=== PATIENT | male | born 1980 | race Caucasian/White ===

== ENCOUNTER 2023-03-26 11:06 | Inpatient (IN) | payer SELFPAY ==
[2023-03-26] VITALS (14 sets, daily range): BP systolic 93–153; BP diastolic 53–88; PULSE 40–68; RESP 12–21; TEMP 36.2–36.9; O2SAT 97–100; BMI 22.7
--- NOTE | ~2023-03-26 | CT_ITS ---
EXAMINATION: CT brain wo con INDICATION: Headache COMPARISON: None TECHNIQUE: Standard unenhanced head CT. The dose-length product (DLP) was 681.00 mGy-cm. The mA was a djusted according to patient size. Iterative reconstruction technique was employed. FINDINGS: No intracranial hemorrhage, acute infarction, or abnormal mass lesion. The ventricles are n ormal. No abnormal mass effect or midline shift. The baker-white matter differentiation is normal. The basal cisterns are patent. The orbits are normal. The paranasal sinuses, mastoids and calvarium are normal. IMPRESSION: 1. No acute intracranial abnormality. Reviewed, dictated and finalized at location B. ER INSPECTOR
--- NOTE | ~2023-03-26 | XR_ITS ---
EXAMINATION: XR chest 2V DATE: 03/26/2023 12:04 INDICATION: Shortness of breath TECHNIQUE: PA and lateral views of the chest are obtained. COMPARISON: None available FINDINGS: The lungs are free of acute opacities. No pleural effusion or pneumothorax. The cardiomedia stinal silhouette is normal. The visualized bones and soft tissues are unremarkable. IMPRESSION: 1. No acute cardiopulmonary abnormality. Reviewed, dictated and finalized at location B. RIVETING MACHINE OPERATOR HELPER
--- NOTE | ~2023-03-26 | NM_ITS ---
EXAMINATION: NM stress w perf spect multi DATE: 03/28/2023 14:34 INDICATION: Chest pain. TECHNIQUE: Rest images were obtained following intravenous administration of 9.6 mCi Tc99m tetrofosmi n ([employer]). The patient performed an exercise activity. At peak exercise, 30.2 mCi Tc99m tetrofosmin ([employer]) was administered intravenously, and stress images were obtained. Data was reconstructed in to short axis and horizontal and vertical long axis SPECT images. Gated SPECT images were also obtain ed. COMPARISON: None. FINDINGS: There is no definite reversible or fixed perfusion abnormality to suggest ischemia or infar ction. There is no segmental wall motion abnormality. Left ventricular ejection fraction measures 5 0%. IMPRESSION: 1. No definite ischemia or infarct. 2. Normal left ventricular ejection fraction measuring 50%. Reviewed, dictated and finalized at location E. WASHER
--- NOTE | 2023-03-26 11:07 | ECG_ITS ---
Measurements Intervals [place] Rate: 52 P: 64 CO: 134 QRS: 52 QRSD: 92 T: 54 QT: 397 QTc: 371 Interpretive Statements SINUS BRADYCARDIA MINIMAL VOLTAGE CRITERIA FOR LVH, CONSIDER NORMAL VARIANT [MEETS CRITERIA IN ONE OF: R(aVL), S(V1), R(V5), R(V5/V6)+S(V1)] BORDERLINE ECG NO PREVIOUS ECG AVAILABLE FOR COMPARISON Electronically Signed On 03-26-2023 17:15:01 ASSEMBLER GARMENT FORM by Grady Woods M.D.
[2023-03-26 11:21] LABS: Basophils Percent Auto 0.4 % (0.2-1.2); Eosinophils Absolute Auto 0.1 K/mm3 (0-0.3); Eosinophils Percent Auto 2.3 % (0-4.4); Hematocrit 46.4 % (42.0-52.0); Hemoglobin 15.7 g/dL (14.0-18.0); Immature Granulocyte Absolute 0.01 K/mm3 (0.00-0.031); Immature Granulocyte Percent A 0.2 % (0-0.5); Lymphocytes Absolute Auto 2.32 K/mm3 (0.9-3.2); Lymphocytes Percent Auto 40.8 % (18.3-44.2); Mean Corpuscular HGB Conc 33.8 g/dl (32-36); Mean Corpuscular Hemoglobin 28.8 pg (26-34); Mean Corpuscular Volume 85.1 fl (80-100); Mean Platelet Volume 10.3 fl (7.4-10.4); Monocytes Absolute Auto 0.4 K/mm3 (0.1-0.6); Monocytes Percent Auto 7.2 % (2.6-8.5); Neutrophils Absolute Auto 2.8 K/mm3 (1.3-6.7); Neutrophils Percent Auto 49.1 % (45.5-73.1); Platelet Count Result 220 k/mm3 (150-375); Red Blood Count 5.45 M/mm3 (4.6-6.20); Red Cell Distribution Width 12.7 % (11.5-14.5); White Blood Count 5.7 K/mm3 (4.5-10.0)
[2023-03-26 11:31] LABS: Alanine Aminotransferase 20 U/L (6-50); Albumin Level 4.2 g/dL (3.5-5.1); Alkaline Phosphatase 69 U/L (38-126); Anion Gap 7 mmol/L (8-16); Aspartate Amino Transferase 27 U/L (17-59); Bilirubin,Total 0.6 mg/dL (0.2-1.3); Blood Urea Nitrogen 29 mg/dL (9-20); Calcium 8.7 mg/dL (8.4-10.2); Carbon Dioxide 22 mmol/L (22-30); Chloride 109 mmol/L (98-107); Estimated CRCL calculation 135 ml/min; Estimated Glomerular Filt Rate > 60; Glucose 128 mg/dL (65-110); Lipase 163 U/L (23-300); Potassium 3.6 mmol/L (3.4-5.0); Sodium 138 mmol/L (137-145)
[2023-03-26 11:34] LABS: Partial Thromboplastin Time 29.2 SECONDS (22.3-36.8)
[2023-03-26 11:43] LABS: Troponin I < 0.012 ng/mL (0.000-0.034)
[2023-03-26] MEDS: Please add drug allergy info to patient profile. 1 EACH XX (13:14)
[2023-03-26] MEDS: ASPIRIN 81 MG CHEWABLE TABLET 324 MG PO (13:14)
[2023-03-26] MEDS: NITROGLYCERIN SL 0.4 MG TABLET SUBLINGUAL (13:16)
--- NOTE | 2023-03-26 13:21 | PC.NURSE ---
13:21 pt received second dose of 0.4mg sublingual Nitroglycerin after reporting no improvement with chest pain 5 minutes after first dose
--- NOTE | 2023-03-26 13:26 | PC.NURSE ---
13:26 Pt given third dose of 0.4mg sublingual nitroglycerin after reporting no improvement of chest pain after first and second dose
--- NOTE | 2023-03-26 13:53 | ED.CHESTPAIN ---
HPI - Chest Pain General Chief Complaint: Chest Pain Stated Complaint: Chest Pain Time Seen by Provider: 03/26/23 12:58 History of Present Illness HPI narrative: Patient presents to the emergency department from home with his . He has had left-sided pain that radiated to his left arm for the past 2 days. Pain has been constant since yesterday morning. Nothing alleviates or worsens the pain. He has felt generally weak and has had headaches. He has a significant family history of early CAD. His uncle had a heart attack before 40 years old. He does not know his father. He also has a family history of bradycardia. His heart rate ranges from high 30s to mid 50s during my evaluation. He is very pleasant and does not have a primary care physician. Was once evaluated 2 years ago. Related Data Allergies Allergy/AdvReac Type Severity Reaction Status Date / Time No Known Allergies Allergy Verified 03/26/23 13:12 Review of Systems Review of Systems: Review of systems negative except what is documented in the HPI Exam Narrative: GENERAL: Well-appearing, well-nourished, and in no acute distress. HEAD: Normocephalic, atraumatic. EYES: PERRLA and EOMI. ENT: Nares clear, no rhinorrhea or epistaxis. Mucous membranes moist. NECK: Supple. CHEST: Clear to auscultation. No respiratory distress. HEART: Bradycardia ABDOMEN: Soft, nontender, nondistended. EXTREMITIES: Normal range of motion. No edema. SKIN: Warm, dry, no rash. NEURO: No focal deficits. Alert and oriented x3. PSYCH: Normal mood and affect. Course Course Emergency Course: differential diagnosis includes but not limited to cad, musculoskeletal pain initial troponin normal. EKG shows sinus bradycardia rate 52. No acute ischemia. Patient is 42 years old overall healthy. Will calculate a heart score discussed with greenhouse manager heart score 3 Vital Signs Vital signs: Vital Signs Temperature 36.4 C 03/26/23 11:08 Pulse Rate 56 L 03/26/23 11:08 Respiratory Rate 18 03/26/23 11:08 Blood Pressure 153/88 H 03/26/23 11:08 Pulse Oximetry 100 03/26/23 11:08 Oxygen Delivery Room Air 03/26/23 11:08 Temperature 36.4 C 03/26/23 11:08 Pulse Rate 49 L 03/26/23 15:50 Respiratory Rate 14 03/26/23 15:50 Blood Pressure 105/72 03/26/23 15:50 Pulse Oximetry 99 03/26/23 15:50 Oxygen Delivery Room Air 03/26/23 13:30 MDM - Chest Pain MDM Narrative Medical decision making narrative: Due to high probability of clinically significant lift threatening deterioration, the patient required my highest level of preparedness to intervene emergently. Critical care time documented not including procedures needed Telemetry ordered due to bradycardia to evaluate for dysrhythmias. Evaluated by myself. Rhythm bradycardia Rate 40 Consult cardiology. Atropine given with some improvement of heart rate from 30s to high 40s. Patient admitted to hospitalist for further monitoring of symptomatic bradycardia and left-sided chest pain. Patient states the nitro and morphine both made his pain worse Lab Data 03/26/23 11:16 03/26/23 11:16 Labs: Lab Results 03/26/23 03/26/23 Range/Units 11:16 14:10 WBC 5.7 (4.5-10.0) K/mm3 RBC 5.45 (4.6-6.20) M/mm3 Hgb 15.7 (14.0-18.0) g/dL Hct 46.4 (42.0-52.0) % MCV 85.1 (80-100) fl MCH 28.8 (26-34) pg MCHC 33.8 (32-36) g/dl RDW 12.7 (11.5-14.5) % Plt Count 220 (150-375) k/mm3 MPV 10.3 (7.4-10.4) fl Immature Gran % (Auto) 0.2 (0-0.5) % Neut % (Auto) 49.1 (45.5-73.1) % Lymph % (Auto) 40.8 (18.3-44.2) % [place] % (Auto) 7.2 (2.6-8.5) % Eos % (Auto) 2.3 (0-4.4) % Baso % (Auto) 0.4 (0.2-1.2) % Lymph # (Auto) 2.32 (0.9-3.2) K/mm3 [place] # (Auto) 0.4 (0.1-0.6) K/mm3 Eos # (Auto) 0.1 (0-0.3) K/mm3 Baso # (Auto) 0.0 (0.0-0.1) K/mm3 Abs Immat Gran (auto) 0.01 (0.00-0.031) K/mm3 Absolute
--- NOTE | 2023-03-26 14:10 | ECG_ITS ---
Measurements Intervals [place] Rate: 39 P: 63 [place]: 149 QRS: 56 QRSD: 87 T: 59 QT: 449 QTc: 363 Interpretive Statements SINUS BRADYCARDIA WITH OCCASIONAL VENTRICULAR PREMATURE COMPLEXES BORDERLINE ECG COMPARED TO ECG 03/26/2023 11:12:04 HEART RATE HAS DECREASED Electronically Signed On 03-26-2023 17:25:36 RN CLINICAL by Grady Woods M.D.
[2023-03-26] MEDS: MORPHINE SULFATE (*CRX) 2 MG/ML INJ IV PUSH (14:11)
[2023-03-26 15:00] LABS: Troponin I < 0.012 ng/mL (0.000-0.034)
[2023-03-26] MEDS: ATROPINE SULFATE 1 MG/10 ML SYRINGE IV PUSH (15:21)
[2023-03-26 16:49] LABS: Influenza A QL RT-PCR Negative (Negative); Influenza B QL RT-PCR Negative (Negative); RSV RNA, RT-PCR Negative (Negative); SARS-CoV-2 RNA PCR Negative (Negative)
--- NOTE | 2023-03-26 17:12 | ECG_ITS ---
Measurements Intervals [place] Rate: 47 P: 62 [place]: 149 QRS: 46 QRSD: 98 T: 49 QT: 431 QTc: 384 Interpretive Statements SINUS BRADYCARDIA MINIMAL VOLTAGE CRITERIA FOR LVH, CONSIDER NORMAL VARIANT BORDERLINE ECG COMPARED TO ECG 03/26/2023 14:24:37 NO SIGNIFICANT CHANGES Electronically Signed On 03-26-2023 17:31:00 ANTISQUEAK WORKER by Grady Woods M.D.
--- NOTE | 2023-03-26 17:22 | ADMGEN ---
This patient, Damaso Rossi, was admitted to IMU Room 210-01. Patient/family oriented to hospital policies and general routines including ID bracelet, bed and alarms, visiting hours, pain management, procedures, bathroom and other care routines, personal items, smoking policy, room service/diet, and visiting hours. Information on how to activate the Rapid Response Team has been discussed. Patient/Family are encouraged to report perceived risks to care and to ask questions if they do not understand what they are told or what they should do.
[2023-03-26 17:40] LABS: Troponin I < 0.012 ng/mL (0.000-0.034)
--- NOTE | 2023-03-26 17:56 | PM.IMHP ---
H&P: HPI History of Present Illness Date/Time: 03/26/23 22:00 Chief Complaint: Chest pressure. Narrative: This is a 42-year-old male smoker who presented to the emergency department via private vehicle for evaluation of chest pressure. The patient provides the following history. The patient provides the following history. The last 2 days he has been experiencing left-sided chest tightness or heaviness radiating to the arm. It has been nearly constant and he denies aggravating and alleviating factors. Today while at work he started to feel weak and developed a headache. He reports a family history of early-onset coronary artery disease and reports having an uncle who had a heart attack before the age of 4040 years old. He has been persistently bradycardic since arrival to the ED and he reports having a family history of the same. He does not know his baseline heart rate. Troponins have been negative thus far. EKG showed sinus bradycardia without significant changes. Chest x-ray showed no acute findings and a normal cardiomediastinal silhouette. He is being admitted in this setting for close monitoring in IMU and Cardiology consultation. Review of Systems Review of Systems: Twelve systems were reviewed and are negative except for as per HPI. [facility] Past Medical History Medical History (Updated 03/27/23 @ 00:39 by Alma Blackmon PA-C) Attention deficit disorder Tobacco abuse Surgical History Surgical History (Updated 03/27/23 @ 00:36 by Alma Blackmon PA-C) No history of previous surgery Family History Family History Mother Lung cancer Grandparent Hypertension Heart disease Grandparent Cerebrovascular accident Grandparent Cardiac arrest Other Cardiac arrest Social History Social History (Updated 03/27/23 @ 00:36 by Alma Blackmon PA-C) Social History: Surrogate medical decision maker: Kwasi Black, spouse. Code status: Full code. Smoking packs per day: 1 Smoking cigarettes per day: 20.0 Years smoked: 20 Smoking pack-years: 20.00 Smoking status: Current every day smoker Tobacco type: cigarettes Alcohol intake: never Substance use: former Substance use type: marijuana and methamphetamine Last use: methamphetamine-3 years ago Do You Feel Safe in your Home?: Yes Lack of Transportation: No Lack of Food: Never True Current Housing: I Have Housing Concerned About Future Housing: No Difficulty Paying Gas/Electric Bills: No Difficulty Paying for Meds: No Currently Unemployed: No Education: High School Diploma/GED Difficulty w/ Childcare or Family Care: No Spiritual care concerns: No Meds Home Medications and Allergies Home Medications Medication Instructions Recorded Confirmed Type No Home Medications 03/26/23 03/26/23 History Allergies Allergy/AdvReac Type Severity Reaction Status Date / Time No Known Allergies Allergy Verified 03/26/23 13:12 Vital Signs Vital Signs - 24 hr 03/26/23 11:08 03/26/23 13:14 03/26/23 13:30 Temperature 97.6 F Pulse Rate 56 L 55 L Respiratory Rate 18 16 Blood Pressure 153/88 H 112/75 Pulse Oximetry 100 98 98 Oxygen Delivery Room Air Room Air 03/26/23 14:04 03/26/23 15:24 03/26/23 15:50 Temperature Pulse Rate 54 L 48 L 49 L Respiratory Rate 15 16 14 Blood Pressure 101/72 112/81 105/72 Pulse Oximetry 97 99 99 Oxygen Delivery 03/26/23 16:26 03/26/23 16:58 03/26/23 17:22 Temperature 97.3 F L Pulse Rate 45 L 55 L 48 L Respiratory Rate 12 21 H 20 Blood Pressure 106/77 119/60 129/78 Pulse Oximetry 100 100 99 Oxygen Delivery Exam Narrative: General: Well-developed male supine in bed. Weight: 87 kg. BMI: 22.7. HEENT: PERRL, EOMI. Sclera anicteric. Tacky mucous membranes. Neck: Supple. Respiratory: Lungs are clear to auscultation bilaterally. Cardiovascular: Bradycardic. Chest: Mild tenderness to
[2023-03-27] VITALS (16 sets, daily range): BP systolic 97–118; BP diastolic 55–77; PULSE 36–48; RESP 14–18; TEMP 36.4–36.9; O2SAT 96–100
--- NOTE | 2023-03-27 00:39 | ECHO_ITS ---
Patient Info Name: Damaso Rossi Age: 42 years : 1980 Gender: Male Ht: 75 in Wt: 179 lbs BSA: 2.07 m2 HR: 36 bpm BP: 107 / 62 mmHg Heart Rhythm: Bradycardia Technical Quality: Good Exam Date: 03/27/2023 10:28 AM Exam Location: Echo Lab Patient Status: Inpatient Admit Date: 03/26/2023 Staff Ordering Physician: Alma Blackmon PA-C Middle School English Teacher: Marylou Norton RDCS Attending Provider: Mikey Roberts MD Referring Physician: Lorri MUNIZ; Exam Type: CA echo doppler color flow Study Info Indications - chest pain Complete two-dimensional, color flow and Doppler transthoracic echocardiogram is performed. Summary 1. Complete two-dimensional, color flow and Doppler transthoracic echocardiogram is performed. 2. Left ventricular chamber dimension is normal. 3. Left ventricular systolic function is normal, estimated at 60-65%. 4. The left ventricular diastolic function is grade I diastolic dysfunction. 5. Right ventricular chamber dimension is mildly enlarged. 6. Right ventricular systolic function is normal. 7. Right atrial chamber dimension is mildly enlarged. 8. There is mild mitral valve regurgitation. Left Ventricle Left ventricular chamber dimension is normal. Left ventricular systolic function is normal, estimated at 60-65%. There is no increased left ventricular wall thickness. The left ventricular diastolic function is grade I diastolic dysfunction. Right Ventricle Right ventricular chamber dimension is mildly enlarged. Right ventricular systolic function is normal. Left Atria Left atrial chamber dimension is normal. Right Atria Right atrial chamber dimension is mildly enlarged. Atrial Septum Intact interatrial septum visualized by color flow imaging. Aortic Valve The aortic valve is trileaflet. There is no aortic valve stenosis. There is no aortic valve regurgitation. Pulmonic Valve The pulmonic valve is not well visualized. There is trace pulmonic regurgitation. Mitral Valve There is mild mitral valve regurgitation. Tricuspid Valve There is trace tricuspid valve regurgitation. Pericardium/Pleural There is no pericardial effusion. Inferior Vena Cava Normal inferior vena cava with >50% collapse upon inspiration consistent with normal right atrial pressure, 3 mmHg. Aorta The aortic root size at the sinus of Valsalva is mildly dilated. Left Ventricular Outflow Tract Name Value Normal LVOT 2D LVOT Diameter 2.1 cm LVOT Doppler LVOT Peak Gradient 3 mmHg LVOT Mean Gradient 2 mmHg LVOT VTI 29 cm LVOT VTI/AV VTI Ratio 1.1 LVOT Stroke Volume 104 ml LVOT CO 3.5 l/min LVOT CI 1.7 l/min/m2 Pulmonic Valve Name Value Normal RVOT Doppler RVOT Peak Gradient 1 mmHg P
[2023-03-27 05:14] LABS: Anion Gap 4 mmol/L (8-16); Blood Urea Nitrogen 29 mg/dL (9-20); Calcium 8.6 mg/dL (8.4-10.2); Carbon Dioxide 26 mmol/L (22-30); Chloride 108 mmol/L (98-107); Cholesterol 151 mg/dL (0-200); Estimated CRCL calculation 106 ml/min; Estimated Glomerular Filt Rate > 60; Glucose 102 mg/dL (65-110); HDL Direct 33 mg/dL; Magnesium 1.9 mg/dL (1.6-2.3); Potassium 4.2 mmol/L (3.4-5.0); Sodium 138 mmol/L (137-145); Triglycerides 81 mg/dL (<150)
[2023-03-27] MEDS: SODIUM CHLORIDE 0.9% IV 1,000 ML 100 ML IV CONT (05:20)
[2023-03-27 05:25] LABS: LDL Cholesterol Direct 92 mg/dL
[2023-03-27] MEDS: ACETAMINOPHEN 325 MG TABLET 650 MG PO (05:28)
--- NOTE | 2023-03-27 08:45 | PM.IMPN ---
Progress Note: A&P Assessment and Plan (1) Chest pain: Qualifiers: Chest pain type: unspecified Qualified Code(s): R07.9 - Chest pain, unspecified Code(s): R07.9 - Chest pain, unspecified Status: Acute (2) Bradycardia: Code(s): R00.1 - Bradycardia, unspecified Status: Acute (3) Tobacco abuse: Code(s): Z72.0 - Tobacco use Status: Acute Plan This is a 42-year-old male smoker who presented to the emergency department via private vehicle for evaluation of chest pressure. The patient provides the following history. The patient provides the following history. The last 2 days he has been experiencing left-sided chest tightness or heaviness radiating to the arm. It has been nearly constant and he denies aggravating and alleviating factors.? Chest pain Possible atypical chest pain, negative troponin x2, EKG shows sinus rhythm bradycardia nonspecific ST-T changes Given family history of early-onset coronary artery disease, patient has high risk of coronary artery disease Chest pain is also possible related to bradycardia Follow-up echocardiogram TSH,, drug screening Follow serial troponin, EKG Telemetry monitoring Consult equip maint eng for evaluation treatment Plan cardiac stress test tomorrow Bradycardia Patient has sinus bradycardia On equip maint eng Follow-up TSH Telemetry monitoring Consult equip maint eng for evaluation treatment Dehydration BUN 29, creatinine 1.0 Received fluid resuscitation Blood pressure stable Subjective Date/time seen: 03/27/23 08:45 Interval history: I saw and examined patient at bedside, patient still has some chest pain, denies palpitation, shortness of breath, patient also has headache, denies vision change, focal weakness, unstable gait Exam Narrative: General: Well-developed male supine in bed. Weight: 87 kg. BMI: 22.7. HEENT: PERRL, EOMI. Sclera anicteric. Tacky mucous membranes. Neck: Supple. Respiratory: Lungs are clear to auscultation bilaterally. Cardiovascular: Bradycardic. Chest: Mild tenderness to palpation over the left anterior chest. Gastrointestinal: Abdomen is soft, nontender, and nondistended with positive bowel sounds. Skin: Warm and dry. No rash or lesions on limited exam. Extremities: No cyanosis, clubbing, or edema. Radial and pedal pulses intact. No palpable knots or cords. Neurological: Alert. Cranial nerves 2-12 are grossly intact. No gross focal deficits to casual conversation. Psychiatric: Pleasant and cooperative with normal mood and affect. Judgment and insight intact. Objective Data Vital Signs Vital Signs: Vital Signs - 24 hr 03/26/23 11:08 03/26/23 13:14 03/26/23 13:30 Temperature 97.6 F Pulse Rate 56 L 55 L Respiratory Rate 18 16 Blood Pressure 153/88 H 112/75 Pulse Oximetry 100 98 98 Oxygen Delivery Room Air Room Air Oxygen Flow Rate 03/26/23 14:04 03/26/23 15:24 03/26/23 15:50 Temperature Pulse Rate 54 L 48 L 49 L Respiratory Rate 15 16 14 Blood Pressure 101/72 112/81 105/72 Pulse Oximetry 97 99 99 Oxygen Delivery Oxygen Flow Rate 03/26/23 16:26 03/26/23 16:58 03/26/23 17:22 Temperature 97.3 F L Pulse Rate 45 L 55 L 48 L Respiratory Rate 12 21 H 20 Blood Pressure 106/77 119/60 129/78 Pulse Oximetry 100 100 99 Oxygen Delivery Oxygen Flow Rate 03/26/23 18:00 03/26/23 18:13 03/26/23 19:25 Temperature 98.5 F Pulse Rate 68 45 L Respiratory Rate 16 Blood Pressure 105/60 Pulse Oximetry 97 Oxygen Delivery Room Air Oxygen Flow Rate 03/26/23 20:00 03/26/23 23:44 03/26/23 20:00 Temperature 97.2 F L Pulse Rate 45 L 48 L 48 L Respiratory Rate 16 15 Blood Pressure 93/53 L Pulse Oximetry 97 98 Oxygen Delivery Room Air Oxygen Flow Rate 03/26/23 22:00 03/27/23 00:00 03/27/23 00:00 Temperature Pulse Rate 40 L 48 L 39 L Respiratory Rate 15 Blood Pressure Pulse Oximetry 98 Oxygen Delivery Room A
--- NOTE | 2023-03-27 10:08 | PM.CNCAR ---
Assessment and Plan Assessment and plan (1) Chest pain: Qualifiers: Chest pain type: unspecified Qualified Code(s): R07.9 - Chest pain, unspecified Code(s): R07.9 - Chest pain, unspecified Status: Acute Assessment and Plan: EKGs without ischemic changes. Troponins are negative x 3. He does have a musculoskeletal component, agree with Tylenol for pain control. Echocardiogram ordered and pending. Given his risk factors for heart disease, will plan for treadmill nuclear stress test to be done 03/28. NPO order placed. (2) Bradycardia: Code(s): R00.1 - Bradycardia, unspecified Status: Acute Assessment and Plan: Heart rate noted to be in the 30s to 60s. Is in sinus bradycardia without any significant bradyarrhythmias. TSH level is normal. This does not appear to be a symptomatic bradycardia. Echocardiogram pending to rule out underlying structural heart disease. Continue to monitor on telemetry. Will assess his chronotropic response to exercise on treadmill test. Recommend outpatient sleep study to evaluate for ENE. If echocardiogram is without significant abnormality and he has appropriate heart rate response to exercise, then no further cardiac workup needed. (3) Tobacco abuse: Code(s): Z72.0 - Tobacco use Status: Acute Assessment and Plan: Smoking cessation discussed. History of Present Illness History of Present Illness Consult date/time: 03/27/23 10:08 Requesting physician: Phylicia Kirkland MD Consult reason: Other (Chest pain, bradycardia) Reason For Visit: Bradycardia Narrative: We are consulted for chest pain and bradycardia. This is a 42 year old male with tobacco dependence and marijuana use who presented with chest pain. Chest pain has been occurring since Sunday morning, which started after eating breakfast. Has been constant since then. No association with exertion. Given NTG in the ED which made it worse. ER workup showed EKG with sinus bradycardia. Heart rate noted to be as low as the 30s. He was given Atropine by ED which had some improvement in the heart rate. Troponins are negative x 3. CXR without acute findings. Serial EKGs without ischemic changes. Patient smokes 1PPD for the past 20 years. Daily marijuana use as well. His maternal grandfather had history of coronary disease, pacemaker. His maternal uncle from complications from high blood pressure. 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 Review of Systems Review of Systems: All systems reviewed & are unremarkable except as noted in HPI and below (HPI) PMFSH Past Medical History Medical History Attention deficit disorder Tobacco abuse Surgical History Surgical History No history of previous surgery Family History Family History Mother Lung cancer Grandparent Hypertension Heart disease Grandparent Cerebrovascular accident Grandparent Cardiac arrest Other Cardiac arrest Social History Social History Social History: Surrogate medical decision maker: Kwasi Rossi, spouse. Code status: Full code. 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
[2023-03-27] MEDS: HYDROcodone/acetaminophen (*CRX) 5-325 MG TABLET 1 TAB PO ×2 (11:30→22:27)
[2023-03-27] MEDS: NICOTINE (*PBKC) 21 MG PATCH 1 PATCH TRANSDERM (17:00)
[2023-03-27 17:41] LABS: Amphetamine Screen Urine Negative (Negative); Barbiturate Screen Urine Negative (Negative); Benzodiazepines Screen Urine Negative (Negative); Cannabinoid Screen Urine Positive (Negative); Cocaine Screen Urine Negative (Negative); Methadone Screen Urine Negative (Negative); Opiate Screen Urine Positive (Negative); Phencyclidine Screen Urine Negative (Negative)
[2023-03-27 17:42] LABS: Appearance Urine Clear (Clear); Bilirubin Urine Negative (Negative); Blood Urine Negative (Negative); Color Urine Yellow (Yellow); Glucose Urine UA Negative (Negative); Ketones Urine Negative (Negative); Leukocyte Esterase Ur Negative LEU/UL (NEGATIVE); Nitrate Urine Negative (Negative); Protein Urine Negative (Negative); Specific Grav Ur 1.023 (1.001-1.035); Urobilinogen Urine 0.2 mg/dL (<2.0); pH Urine 6.5 (5.0-9.0)
[2023-03-27 17:52] LABS: Add Urine Microscopic? NO
[2023-03-28] VITALS (8 sets, daily range): BP systolic 96–104; BP diastolic 54–66; PULSE 40–61; RESP 14–20; TEMP 36.1–36.5; O2SAT 97–99
--- NOTE | 2023-03-28 | EST_ITS ---
Patient Info Name: Damaso Rossi Age: 42 years : 1980 Gender: Male Ht: 77 in Wt: 190 lbs BSA: 2.16 m2 HR: 44 bpm BP: 14 / 74 mmHg Heart Rhythm: Sinus Rhythm Exam Date: 03/28/2023 12:00 PM Exam Location: Echo Lab Patient Status: Inpatient Admit Date: 03/27/2023 Staff Ordering Physician: Vane Boyd MD Attending Provider: Mikey Roberts MD Exercise Technologist: Miladys Trotter CT Exercise Physician: Vane Boyd MD Exam Type: CA stress test treadmill w NM Study Info Indications R07.89 - Other chest pain A nuclear stress test was performed. Summary 1. Exercise capacity very good at >10 METS. 2. Target heart rate achieved for stress test. Appropriate heart rate response to exercise. 3. Hypertensive blood pressure response with exercise. 4. Occasional PVCs during exercise. 5. No abnormal ST/T wave changes diagnostic of ischemia with exercise. 6. Please correlate with nuclear medicine images, reported separately. 7. Stress test supervised and interpreted by Vane Boyd MD. Protocol: José Miguel Stress ECG Details Stage: REST Duration (min): 1 min : 8 sec Speed (mph): 0.0 Grade (%): 0 HR (bpm): 51 SBP (mmHg): 114 DBP (mmHg): 74 METS: --- Stage: REST Duration (min): 26 min : 22 sec Speed (mph): 0.0 Grade (%): 0 HR (bpm): 49 SBP (mmHg): 114 DBP (mmHg): 74 METS: --- Stage: STAGE 1 Duration (min): 1 min : 0 sec Speed (mph): 1.7 Grade (%): 10 HR (bpm): 75 SBP (mmHg): 114 DBP (mmHg): 74 METS: --- Stage: STAGE 1 Duration (min): 2 min : 0 sec Speed (mph): 1.7 Grade (%): 10 HR (bpm): 75 SBP (mmHg): 114 DBP (mmHg): 74 METS: --- Stage: STAGE 1 Duration (min): 3 min : 0 sec Speed (mph): 1.7 Grade (%): 10 HR (bpm): 76 SBP (mmHg): 135 DBP (mmHg): 78 METS: --- Stage: STAGE 2 Duration (min): 1 min : 0 sec Speed (mph): 2.5 Grade (%): 12 HR (bpm): 82 SBP (mmHg): 135 DBP (mmHg): 78 METS: --- Stage: STAGE 2 Duration (min): 2 min : 0 sec Speed (mph): 2.5 Grade (%): 12 HR (bpm): 82 SBP (mmHg): 147 DBP (mmHg): 74 METS: --- Stage: STAGE 2 Duration (min): 3 min : 0 sec Speed (mph): 2.5 Grade (%): 12 HR (bpm): 87 SBP (mmHg): 147 DBP (mmHg): 74 METS: --- Stage: STAGE 3 Duration (min): 1 min : 0 sec Speed (mph): 3.4 Grade (%): 14 HR (bpm): 99 SBP (mmHg): 147 DBP (mmHg): 74 METS: --- Stage: STAGE 3 Duration (min): 2 min : 0 sec Speed (mph): 3.4 Grade (%): 14 HR (bpm): 104 SBP (mmHg): 147 DBP (mmHg): 74 METS: --- Stage: STAGE 3 Duration (min): 3 min : 0 sec Speed (mph): 3.4 Grade (%): 14 HR (bpm): 107 SBP (mmHg): 204 DBP (mmHg): 91 METS: --- Stage: STAGE 4 Duration (min): 1 min : 0 sec Speed (mph): 4.2 Grade (%): 16 HR (bpm): 143 SBP (mmHg): 204 DBP (mmHg): 91 METS: --- Stage: STAGE 4 Duration (min): 2 min : 0 sec Speed (mph): 4.2
[2023-03-28] MEDS: NICOTINE (*PBKC) 21 MG PATCH 1 PATCH TRANSDERM (09:53)
[2023-03-28] MEDS: HYDROcodone/acetaminophen (*CRX) 5-325 MG TABLET 1 TAB PO (11:00)
--- NOTE | 2023-03-28 11:21 | PM.PNCARD ---
Progress Note: A&P Assessment and Plan (1) Chest pain: Qualifiers: Chest pain type: unspecified Qualified Code(s): R07.9 - Chest pain, unspecified Code(s): R07.9 - Chest pain, unspecified Status: Acute Assessment and Plan: EKGs without ischemic changes. Troponins are negative x 3. He does have a musculoskeletal component, agree with Tylenol for pain control. Echocardiogram shows normal LVEF, no significant valvular disease. Given his risk factors for heart disease, will plan for treadmill nuclear stress test to be done 03/28. (2) Bradycardia: Code(s): R00.1 - Bradycardia, unspecified Status: Acute Assessment and Plan: Heart rate noted to be in the 30s to 60s. Is in sinus bradycardia without any significant bradyarrhythmias. TSH level is normal. This does not appear to be a symptomatic bradycardia. Echocardiogram with normal LVEF, no significant abnormality. Continue to monitor on telemetry. Will assess his chronotropic response to exercise on treadmill test. Recommend outpatient sleep study to evaluate for ENE. If echocardiogram is without significant abnormality and he has appropriate heart rate response to exercise, then no further cardiac workup needed. (3) Tobacco abuse: Code(s): Z72.0 - Tobacco use Status: Acute Assessment and Plan: Smoking cessation discussed. Subjective Date/time seen: 03/28/23 11:21 Interval history: Reason for visit: Chest pain HPI: We are consulted for chest pain and bradycardia. This is a 42 year old male with tobacco dependence and marijuana use who presented with chest pain. Chest pain has been occurring since Sunday morning, which started after eating breakfast. Has been constant since then. No association with exertion. Given NTG in the ED which made it worse. ER workup showed EKG with sinus bradycardia. Heart rate noted to be as low as the 30s. He was given Atropine by ED which had some improvement in the heart rate. Troponins are negative x 3. CXR without acute findings. Serial EKGs without ischemic changes. Patient smokes 1PPD for the past 20 years. Daily marijuana use as well. His maternal grandfather had history of coronary disease, pacemaker. His maternal uncle from complications from high blood pressure. 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 Date of service 03/28: Reports a headache this morning. Tele stable with sinus bradycardia without any significant arrhythmias. Review of Systems Review of Systems: All systems reviewed & are unremarkable except as noted in HPI and below (HPI) Exam Const: General: no acute distress HENMT: Mouth: Yes moist mucous membranes Eyes: General: appearance normal, both eyes and all related structures Sclera: sclerae normal Resp: Effort & Inspection: normal respiratory effort Cardio: Rate: bradycardic Rhythm: regular rhythm Skin: General skin exam: normal color Neuro: Speech: normal speech Psych: Mental Status: mental status grossly normal Affect: normal affect Objective Data Vital Signs Vital Signs: Vital Signs - 24 hr 03/27/23 12:00 03/27/23 12:17 03/27/23 12:19 Temperature 36.9 C Pulse Rate 43 L Respiratory Rate 16 Blood Pressure 104/60 112/76 106/70 Pulse Oximetry 98 Oxygen Delivery 03/27/23 15:35 03/27/23 12:00 03/27/23 14:00 Temperature 36.6 C Pulse Rate 40 L 42 L 40 L Respiratory Rate 14 Blood Pressure 97/55 L Pulse Oximetry 96 Oxygen Delivery 03/27/23 16:00 03/27/23 18:00 03/27/23 20:51 Temperature 36.4 C Pulse Rate 40 L 45 L 45 L Respiratory Rate 16 Blood Pressure 118/77 Pulse Oximetry 99 Oxygen Delivery 03/27/23 20:00 03/27/23 20:00 03/27/23 20:00 Temperature 36.4 C Pulse Rate 45 L 45 L 45 L Respiratory Rate 16 16 Blood Pressure 118/77 Pulse Oximetry 99 99 Oxygen Delivery Room Air 03/27/23 22:00 03/28/23 00:00
--- NOTE | 2023-03-28 12:06 | PM.IMPN ---
Progress Note: A&P Assessment and Plan (1) Chest pain: Qualifiers: Chest pain type: unspecified Qualified Code(s): R07.9 - Chest pain, unspecified Code(s): R07.9 - Chest pain, unspecified Status: Acute (2) Bradycardia: Code(s): R00.1 - Bradycardia, unspecified Status: Acute (3) Tobacco abuse: Code(s): Z72.0 - Tobacco use Status: Acute Plan This is a 42-year-old male smoker who presented to the emergency department via private vehicle for evaluation of chest pressure. The patient provides the following history. The patient provides the following history. The last 2 days he has been experiencing left-sided chest tightness or heaviness radiating to the arm. It has been nearly constant and he denies aggravating and alleviating factors.? Chest pain Possible atypical chest pain, negative troponin x2, EKG shows sinus rhythm bradycardia nonspecific ST-T changes Given family history of early-onset coronary artery disease, patient has high risk of coronary artery disease Chest pain is also possible related to bradycardia Follow-up echocardiogram ? 1. Complete two-dimensional, color flow and Doppler transthoracic echocardiogram is performed. ? 2. Left ventricular chamber dimension is normal. ? 3. Left ventricular systolic function is normal, estimated at 60-65%. ? 4. The left ventricular diastolic function is grade I diastolic dysfunction. ? 5. Right ventricular chamber dimension is mildly enlarged. ? 6. Right ventricular systolic function is normal. ? 7. Right atrial chamber dimension is mildly enlarged. ? 8. There is mild mitral valve regurgitation TSH within normal limit, drug screening positive opiate and marijuana Follow serial troponin negative, EKG sinus Eliceo Telemetry monitoring shows no ischemia Consult soaping department supervisor for evaluation treatment No ischemia on cardiac stress test , and patient's heart rate increased responding to cardiac stress test Bradycardia Patient has sinus bradycardia Follow-up TSH 2.23 Telemetry monitoring shows sinus bradycardia, patient is asymptomatic Consult soaping department supervisor for evaluation treatment, cardiac stress test performed, that shows no cardiac ischemia per Cardiology report Carrier Loader approved patient to be discharged and patient will be followed by primary care doctor and soaping department supervisor Dehydration BUN 29, creatinine 1.0 Received fluid resuscitation Blood pressure stable Subjective Date/time seen: 03/28/23 12:06 Interval history: I saw exam patient today, patient denies palpitation, chest pain, short of breath, abdomen pain, nausea vomiting diarrhea dysuria. Patient underwent cardiac stress test without complication. Cardiac stress test negative of ischemia per soaping department supervisor, pending report. Patient heart rate responding to cardiac stress test Exam Narrative: General: Well-developed male supine in bed. Weight: 87 kg. BMI: 22.7. HEENT: PERRL, EOMI. Sclera anicteric. Tacky mucous membranes. Neck: Supple. Respiratory: Lungs are clear to auscultation bilaterally. Cardiovascular: Bradycardic. Chest: Mild tenderness to palpation over the left anterior chest. Gastrointestinal: Abdomen is soft, nontender, and nondistended with positive bowel sounds. Skin: Warm and dry. No rash or lesions on limited exam. Extremities: No cyanosis, clubbing, or edema. Radial and pedal pulses intact. No palpable knots or cords. Neurological: Alert. Cranial nerves 2-12 are grossly intact. No gross focal deficits to casual conversation. Psychiatric: Pleasant and cooperative with normal mood and affect. Judgment and insight intact. Objective Data Vital Signs Vital Signs: Vital Signs - 24 hr 03/27/23 12:17 03/27/23 12:19 03/27/23 15:35 Temperature 97.8 F Pulse Rate 40 L Respiratory Rate 14 Blood Pressure 112/76 106/70 97/55 L Pulse Oximetry 96 Oxygen Delivery 03/27/23 14:00 03/27/23 16:00 03/27/23 18:00 Temperature Pulse
--- NOTE | 2023-03-28 15:48 | PM.DS ---
DS: Admitting Diagnosis Discharge Date 03/28/23 Admitting Diagnosis (1) Chest pain: ?Qualifiers: ?Chest pain type:?unspecified? Qualified Code(s):?R07.9 - Chest pain, unspecified ?Code(s): R07.9 - Chest pain, unspecified ?Status:?Acute (2) Bradycardia: ?Code(s): R00.1 - Bradycardia, unspecified ?Status:?Acute (3) Tobacco abuse: ?Code(s): Z72.0 - Tobacco use ?Status:?Acute DS: Discharge Diagnosis Discharge Diagnosis (1) Chest pain: Qualifiers: Chest pain type: unspecified Qualified Code(s): R07.9 - Chest pain, unspecified Code(s): R07.9 - Chest pain, unspecified Status: Acute (2) Bradycardia: Code(s): R00.1 - Bradycardia, unspecified Status: Acute (3) Tobacco abuse: Code(s): Z72.0 - Tobacco use Status: Acute DS: Summary Hospital Course Hospital Course: Per H&P, this is a 42-year-old male smoker who presented to the emergency department via private vehicle for evaluation of chest pressure. The patient provides the following history. The patient provides the following history. The last 2 days he has been experiencing left-sided chest tightness or heaviness radiating to the arm. It has been nearly constant and he denies aggravating and alleviating factors.? The following med issues have been addressed during hospitalization Chest pain Possible atypical chest pain, negative troponin x2, EKG shows sinus rhythm bradycardia nonspecific ST-T changes Given family history of early-onset coronary artery disease, patient has high risk of coronary artery disease Chest pain is also possible related to bradycardia Follow-up echocardiogram ? 1. Complete two-dimensional, color flow and Doppler transthoracic echocardiogram is performed. ? 2. Left ventricular chamber dimension is normal. ? 3. Left ventricular systolic function is normal, estimated at 60-65%. ? 4. The left ventricular diastolic function is grade I diastolic dysfunction. ? 5. Right ventricular chamber dimension is mildly enlarged. ? 6. Right ventricular systolic function is normal. ? 7. Right atrial chamber dimension is mildly enlarged. ? 8. There is mild mitral valve regurgitation TSH within normal limit, drug screening positive opiate and marijuana Follow serial troponin negative, EKG sinus Eliceo Telemetry monitoring shows no ischemia Consult application integrator for evaluation treatment No ischemia on cardiac stress test , and patient's heart rate increased responding to cardiac stress test Bradycardia Patient has sinus bradycardia Follow-up TSH 2.23 Telemetry monitoring shows sinus bradycardia, patient is asymptomatic Consult application integrator for evaluation treatment, cardiac stress test performed, that shows no cardiac ischemia per Cardiology report Yard Supervisor approved patient to be discharged and patient will be followed by primary care doctor and application integrator Dehydration BUN 29, creatinine 1.0 Received fluid resuscitation Blood pressure stable Time Spent with Patient Time attestation: Total time spent providing and/or coordinating discharge services: Exam Narrative: General: Well-developed male supine in bed. Weight: 87 kg. BMI: 22.7. HEENT: PERRL, EOMI. Sclera anicteric. Tacky mucous membranes. Neck: Supple. Respiratory: Lungs are clear to auscultation bilaterally. Cardiovascular: Bradycardic. Chest: Mild tenderness to palpation over the left anterior chest. Gastrointestinal: Abdomen is soft, nontender, and nondistended with positive bowel sounds. Skin: Warm and dry. No rash or lesions on limited exam. Extremities: No cyanosis, clubbing, or edema. Radial and pedal pulses intact. No palpable knots or cords. Neurological: Alert. Cranial nerves 2-12 are grossly intact. No gross focal deficits to casual conversation. Psychiatric: Pleasant and cooperative with normal mood and affect. Judgment and insight intact. DS: Data Data Completed and Pending Labs
== END 2023-03-28 16:00 | disposition home or self-care (01) | DRG 201 ==
LOC: ANHED 16:14 → ANHIMU 16:45
PROVIDERS: Emergency Medicine; Physician Assistant; Admitting Provider Internal Medicine; Emergency Provider Emergency Medicine; Visit Provider Hospitalist
DX: R00.1 Bradycardia, unspecified (principal); R07.9 Chest pain, unspecified; E86.0 Dehydration; F12.90 Cannabis use, unspecified, uncomplicated; F17.210 Nicotine dependence, cigarettes, uncomplicated; F98.8 Other specified behavioral and emotional disorders with onset usually occurring in childhood and adolescence; Z20.822 Contact with and (suspected) exposure to COVID-19; Z82.49 Family history of ischemic heart disease and other diseases of the circulatory system
CPT/HCPCS: 36415; 70450; 71046; 78452; 80048; 80053; 80061; 80307; 81003; 83690; 83735; 84443; 84484; 85025; 85610; 85730; 87637; 93005; 93017; 93306; 96374; 96375; 99285; A9270; A9502; G0378; J0461; J2270; J7030